=== PATIENT | female | born 1960 | race Caucasian/White ===

== ENCOUNTER 2017-03-27 16:48 | Emergency (ER) | payer SELFPAY ==
[~2017-03-27] VITALS: Ht 165.1 cm; Wt 87.5 kg
[2017-03-27 18:24] LABS: HEMATOCRIT 50.3 % (36.0-46.0); MCH 26.8 PG (29.0-34.0); MCV 81.1 FL (83-99); MEAN PLAT.VOLUME 9.2 uM^3 (9.5-12.4); PLATELET COUNT 363 K/uL (156-360); RBC DIS.WIDTH-CV 13.4 % (11.8-14.6); RBC DIS.WIDTH-SD 38.6 % (39-53); WHITE BLOOD COUNT 15.1 K/uL (4.1-10.2)
[2017-03-27 18:29] LABS: INTER. NORMALIZED RATIO 1.1; PROTHROMBIN TIME 11.7 SEC (10.2-12.9)
[2017-03-27 18:35] LABS: CHLORIDE 98 mEq/L (99-109); POTASSIUM 3.9 mEq/L (3.7-5.4); SODIUM 134 mEq/L (136-147)
[2017-03-27 18:36] LABS: GLUCOSE 103 mg/dL (70-99)
[2017-03-27 18:40] LABS: GFR ESTIMATE (CALCULATED) > 59 mL/min/
[2017-03-27 18:41] LABS: ANION GAP 15 MEQ/L (2-14)
[2017-03-27 18:44] LABS: TROP-I INTERPRETATION NEGATIVE; TROPONIN-I < 0.01 ng/mL (0.0-0.30)
[2017-03-27 18:47] LABS: UREA NITROGEN (BUN) 21 mg/dL (9-23)
[2017-03-27] MEDS ORDERED: PRILOSEC20 MG PO (21:00)
[2017-03-27] MEDS ORDERED: VALIUM5 MG PO (21:00)
[2017-03-27 21:25] VITALS: BP 147/84
== END 2017-03-27 21:26 | disposition home or self-care (01) ==
LOC: EME 16:48
PROVIDERS: Physician Assistant
DX: R11.2 Nausea with vomiting, unspecified (principal); J02.9 Acute pharyngitis, unspecified; R09.89 Other specified symptoms and signs involving the circulatory and respiratory systems
CPT/HCPCS: 70360; 71020; 80048; 84484; 85027; 85610; 85730; 93005; 99281; 99285; J2405; J7030